=== PATIENT | male | born 1985 | race Caucasian/White ===

== ENCOUNTER 2018-11-26 05:02 | Inpatient (IN) | payer OTHER ==
[2018-11-23 10:29] LABS: BASOPHILS # (AUTO) 0.1 (0.0-0.1); EOSINOPHILS # (AUTO) 0.1 (0.0-0.4); EOSINOPHILS % 1.6 % (0.0-6.0); HEMATOCRIT 48.4 % (38.2-49.6); HEMOGLOBIN 16.2 g/dL (14.0-18.0); LYMPHOCYTES % 31.5 % (18.0-39.1); MEAN CORPUSCULAR HEMOGLOBIN 29.7 pg (28-32); MEAN CORPUSCULAR HGB CONC 33.5 g/dL (31-35); MEAN CORPUSCULAR VOLUME 88.8 fL (81-99); MONOCYTES # (AUTO) 0.4 (0.2-0.8); MONOCYTES % 6.4 % (4.4-11.3); NEUTROPHILS # (AUTO) 3.7 (2.1-6.9); PLATELET COUNT 205 x10e3/uL (140-360); RED BLOOD COUNT 5.45 x10e6/uL (4.3-5.7); RED CELL DISTRIBUTION WIDTH 14.4 % (11.7-14.4)
[~2018-11-26] VITALS: Ht 182.9 cm; Wt 171.0 kg
[~2018-11-26 05:02] MED LIST: BUPROPION HCL75 MG PO; DEPAKOTE125 MG; METOPROLOL
[2018-11-26] MEDS ORDERED: CEFAZOLIN SOD 2 GM/D5W 50ML 50 ML IV ONE (05:15)
[2018-11-26] MEDS ORDERED: BUPROPION HCL100 MG PO (05:25)
[2018-11-26] MEDS ORDERED: DEPAKOTE500 MG PO (05:25)
[2018-11-26] MEDS ORDERED: METOPROLOL TART25 MG PO (05:25)
[2018-11-26] MEDS ORDERED: BUPIVACAINE 0.25% 30ML SDV INJ ONE (06:11)
[2018-11-26] MEDS ORDERED: LIDOCAINE HCL (LTA) 4 ML SOLN ONE (06:44)
[2018-11-26] MEDS ORDERED: ACETAMINOPHEN 1000 MG/100 ML 100 ML IV ONE (06:44)
[2018-11-26] MEDS ORDERED: SCOPOLAMINE 1.5 MG PATCH ONE (06:45)
[2018-11-26] MEDS ORDERED: SUGAMMADEX SODIUM 200 MG/2 ML VIAL IV ONE (08:26)
[2018-11-26] MEDS ORDERED: MORPHINE SULFATE 2 MG/ML SYR 1ML IV PRN (08:45)
[2018-11-26] MEDS ORDERED: FENTANYL CITRATE/PF 100MCG/2 ML INJ ONE ×2 (09:00→18:25)
[2018-11-26] MEDS ORDERED: ONDANSETRON HCL INJ 2MG/ML 2ML 2 MG/ML VIAL ONE ×2 (09:06→13:21)
[2018-11-26] MEDS ORDERED: METOCLOPRAMIDE HCL 10 MG/2ML VIAL ONE (09:14)
[2018-11-26] MEDS ORDERED: PROMETHAZINE HCL (IM) 25 MG/ML VIAL ONE (09:26)
--- NOTE | 2018-11-26 09:34 | Operative Report ---
DATE OF PROCEDURE: 11/26/2018 SURGEON: Anibal Mcduffie MD PREOPERATIVE DIAGNOSES: 1. Morbid obesity, BMI 51. 2. Obstructive sleep apnea. POSTOPERATIVE DIAGNOSES: 1. Morbid obesity, BMI 51. 2. Obstructive sleep apnea. PREOPERATIVE INDICATIONS: Treat disease, prevent complications related to comorbid conditions of obesity. PROCEDURE: Laparoscopic vertical sleeve gastrectomy. ANESTHESIA: General. DISK OPERATOR: Akshat Carrasco, surgical coder (needed due to complexity of case). FLUIDS: 1 liter of crystalloid. ESTIMATED BLOOD LOSS: 20 mL. DRAINS: None. COMPLICATIONS: None. SPECIMENS: Partial stomach. GRAFTS: None. FINDINGS: 1. Normal upper GI anatomy. 2. Negative intraoperative EGD leak test. PROCEDURE IN DETAIL: The patient was brought to the operating room and was intubated under general endotracheal anesthesia. He was positioned supine and both arms abducted and all pressure points were appropriately padded. He was sterilely prepped and draped in the usual fashion. A preprocedure pause was performed identifying the patient, use of perioperative antibiotics, intended procedure, and staff surgeon. Access was gained via a 5 mm left subcostal incision using a Veress needle. Insufflation of the abdomen ensued. Four additional trocars were placed in the standard position and liver retractor was used to expose the stomach. The greater curvature of the stomach was mobilized using [place] LigaSure device from about 4 cm proximal to the pyloric valve to the left dean of the diaphragm. An adult-sized endoscope was placed along the lesser curvature of the stomach. The greater curvature of the stomach was resected using multiple firings of a 60 mm purple load Endo KAILYN Covidien stapling device, which was reinforced with SeamGuard. Once the specimen was removed, it was taken out to the right periumbilical port site. The port site was closed with 0 Vicryl suture using the Rome-Enrique technique in a [id number] fashion. I then conducted the intraoperative EGD leak test of the sleeve. No leaks were identified. We verified hemostasis, desufflated the abdomen, and removed the trocars. The liver retractor was removed. We closed the incision site with 4-0 Monocryl suture in a subcuticular fashion. Dermabond dressings were applied, 0.25% Bupivacaine was used both at the preperitoneal and incisional sites. The patient tolerated the procedure well. Type of wound is type 2, clean and contaminant. All surgical sponges and instrument counts were correct. MD JOSÉ Rooney/GLENL /[id number]
[2018-11-26] MEDS ORDERED: MORPHINE SULFATE INJ 4 MG/ML INJ 1ML ONE (09:42)
[2018-11-26] MEDS ORDERED: SCOPOLAMINE 1.5 MG PATCH TOP SCH (10:00)
--- NOTE | 2018-11-26 10:09 | History and Physical ---
CHIEF COMPLAINT: "I have weight loss surgery." HISTORY: This is a 33-year-old white man, who was admitted to [facility] on Monday, November 26, 2018, for elective bariatric surgery. The patient has a known history of extreme obesity that complicates underlying hypertension and his sleep apnea. Today, the patient underwent successful laparoscopic sleeve gastrectomy. The surgery was performed by Dr. Anibal Mcduffie. At this time, the patient complains of nausea, abdominal pain, as well as being hot. He denies any shortness of breath or chest pain. REVIEW OF SYSTEMS: GENERAL: Weight has been stable. No fever or chills. HEENT: No headaches. No visual changes. CARDIOVASCULAR/RESPIRATORY: No chest pain or cough. GI: Complains of nausea as well as abdominal pain. : Chávez catheter has been removed. NEUROMUSCULAR: Denies any limb weakness and numbness. PAST MEDICAL HISTORY: 1. Hypertensive heart disease. 2. Obstructive sleep apnea. 3. Extreme obesity, BMI 50. 4. Bipolar disorder. ALLERGIES: NO KNOWN DRUG ALLERGIES. FAMILY HISTORY: Noncontributory. SOCIAL HISTORY: This gentleman is . No documentation of tobacco use, but he does drink alcohol socially. HOME MEDICATIONS: 1. Depakote ER 250 mg daily. 2. Wellbutrin XL 150 mg daily. 3. Trazodone 50 mg at bedtime. 4. Metoprolol tartrate 25 mg b.i.d. PHYSICAL EXAMINATION: GENERAL: On exam, he is somnolent, but arousable. He is currently in the post anesthesia care unit. Does not appear to be in respiratory distress. VITAL SIGNS: Blood pressure 130/80, heart rate is 96, respiratory rate is 22, ox saturation is 88%-90% on room air, but he does have sleep apnea. He is afebrile. Height is 6 feet, weight is 325 pounds, BMI is 50. INTEGUMENT: Skin is warm and dry. No pallor, jaundice, or diaphoresis. The patient has multiple tattoos on his chest. HEENT: Anicteric sclerae with moist mucous membranes and no facial droop appreciated. NECK: Supple. No evidence of jugular venous distention. CARDIOVASCULAR: Distant heart sounds. Tachycardic rate with a regular rhythm. LUNGS: Clear to auscultation bilaterally. ABDOMEN: Obese. The laparoscopic incisions are clean, dry, and intact. No bowel sounds are appreciated. EXTREMITIES: No edema or deformities. NEUROLOGIC: Intact. He moves all 4 extremities freely. DIAGNOSES: 1. Status post laparoscopic sleeve gastrectomy. 2. Extreme obesity, BMI 50, complicating underlying sleep apnea and hypertension. 3. Hypertension. 4. Obstructive sleep apnea. PLAN: 1. Intravenous fluids. 2. Intravenous antiemetics. 3. Pain control. 4. We will encourage incentive spirometer use. 5. Blood pressure monitoring control. I would like to thank, Dr. Mcduffie for involving me in this patient's care. MD MARYA Loyd/JHONY /[id number] MTDD
[2018-11-26] MEDS ORDERED: HYDROMORPHONE 2MG/ML 2 MG/ML ML ONE (10:19)
[2018-11-26] MEDS: MORPHINE SULFATE INJ 4 MG/ML INJ 1ML IV PRN ×2 (12:05→18:56)
[2018-11-26] MEDS: SODIUM CHLORIDE 0.9% 1000ML 1,000 ML IV SCH ×2 (12:05→16:43)
[2018-11-26] MEDS: ONDANSETRON HCL INJ 2MG/ML 2ML 2 MG/ML VIAL IV PRN ×2 (12:05→17:53)
[2018-11-26 12:45] VITALS: BP 142/89
[2018-11-26] MEDS ORDERED: SEVOFLURANE INHAL SOLN 250 ML PEN BTL ONE (13:21)
[2018-11-26] MEDS ORDERED: LIDOCAINE HCL 2% LOCAL INJ 5 ML SDV VIAL INJ ONE (13:21)
[2018-11-26] MEDS ORDERED: PROPOFOL IV EMULSION 10 MG/ML 20 ML VIAL ONE (13:21)
[2018-11-26] MEDS ORDERED: DEXAMETHASONE SOD PHOS INJ 4 MG/ML VIAL ONE (13:21)
[2018-11-26] MEDS ORDERED: ROCURONIUM BROMIDE 10 MG/ML 5ML VIAL ONE (13:21)
[2018-11-26] MEDS ORDERED: LIDOCAINE HCL 2% JELLY 5 ML TUBE ONE (13:21)
[2018-11-26 15:01] VITALS: BP 142/89
[2018-11-26 15:02] VITALS: BP 142/89
[2018-11-26 17:05] VITALS: BP 129/78
[2018-11-26] MEDS ORDERED: MIDAZOLAM HCL 2 MG/2 ML VIAL ONE (18:25)
[2018-11-26] MEDS: METOPROLOL TARTRATE 25 MG TAB PO SCH (18:35)
[2018-11-26] MEDS ORDERED: PROMETHAZINE 12.5MG/ NACL 0.9% 12.5 MG/50 ML BAG IV ONE (18:45)
[2018-11-26 20:00] VITALS: BP 129/84
[2018-11-26] MEDS: ENOXAPARIN SOD INJ 40 MG/0.4 ML SYR SC SCH (21:00)
[2018-11-26] MEDS: DEPAKOTE DELAYED-RELEASE TAB 500 MG PO SCH (21:12)
[2018-11-26 21:47] VITALS: BP 129/84
[2018-11-27] VITALS (8 sets, daily range): BP systolic 112–135; BP diastolic 69–86
[2018-11-27] MEDS: SODIUM CHLORIDE 0.9% 1000ML 1,000 ML IV SCH ×3 (00:38→16:38)
[2018-11-27] MEDS: MORPHINE SULFATE INJ 4 MG/ML INJ 1ML IV PRN ×2 (00:41→08:29)
[2018-11-27] MEDS: ONDANSETRON HCL INJ 2MG/ML 2ML 2 MG/ML VIAL IV PRN ×2 (00:42→07:27)
--- NOTE | 2018-11-27 05:17 | NUR ---
ASSISTED PATIENT WITH AMBULATION AT THE HALLWAY, BUT PATIENT COMPLAINT OF HICCUPS AND STARTED TO HAVE ABDOMINAL PAIN.
[2018-11-27 06:40] LABS: BASOPHILS % 0.3 % (0.0-1.0); EOSINOPHILS # (AUTO) 0.1 (0.0-0.4); EOSINOPHILS % 0.7 % (0.0-6.0); HEMOGLOBIN 15.6 g/dL (14.0-18.0); LYMPHOCYTES # (AUTO) 2.1 (1.0-3.2); LYMPHOCYTES % 18.3 % (18.0-39.1); MEAN CORPUSCULAR HEMOGLOBIN 29.9 pg (28-32); MEAN CORPUSCULAR HGB CONC 33.2 g/dL (31-35); MONOCYTES # (AUTO) 0.8 (0.2-0.8); MONOCYTES % 6.5 % (4.4-11.3); NEUTROPHILS # (AUTO) 8.5 (2.1-6.9); NEUTROPHILS % 73.7 % (38.7-80.0); PLATELET COUNT 217 x10e3/uL (140-360); RED BLOOD COUNT 5.22 x10e6/uL (4.3-5.7); RED CELL DISTRIBUTION WIDTH 14.3 % (11.7-14.4)
[2018-11-27] MEDS ORDERED: HYDROCODONE/APAP 7.5MG-325MG 1 EA TAB PO PRN (07:00)
[2018-11-27 07:15] LABS: ALANINE AMINOTRANSFERASE 79 IU/L (0-55); ALBUMIN 3.4 g/dL (3.5-5.0); ALBUMIN/GLOBULIN RATIO 0.9 (0.8-2.0); ALKALINE PHOSPHATASE 80 IU/L (40-150); BLOOD UREA NITROGEN 6 mg/dL (7-26); BUN/CREATININE RATIO 7 (6-25); CALCIUM 8.8 mg/dL (8.4-10.2); CARBON DIOXIDE 23 mmol/L (22-29); CHLORIDE 98 mmol/L (98-107); CREATININE, SERUM 0.83 mg/dL (0.72-1.25); EST GLOMERULAR FILTRATION RATE > 60 ML/MIN (60-); GLUCOSE 127 mg/dL (74-118); MAGNESIUM 2.2 MG/DL (1.3-2.1); SODIUM 134 mmol/L (136-145)
--- NOTE | 2018-11-27 07:29 | NUR ---
MD THOMPSON INTO SEE PT, DISCUSSED POC
--- NOTE | 2018-11-27 07:54 | NUR ---
Progress Note S: Nausea and small amount of vomiting O: AF, VSS; labs reviewed General- no distress Abdomen- soft, incisions clean, dry and intact A/P: POD 1, s/p lap sleeve gastrectomy for morbid obesity -Clears, ambulate, IS, OOB to chair -If nausea improves, ok to dc home later -F/u in 1 week in clinic -Instructions given to patient
[2018-11-27] MEDS ORDERED: BUPROPION HCL 100 MG TAB PO SCH (09:00)
--- NOTE | 2018-11-27 09:20 | NUR ---
PT UNABLE TO TAKE AM MEDICATIONS AT THIS TIME DUE TO NAUSEA
[2018-11-27] MEDS: ENOXAPARIN SOD INJ 40 MG/0.4 ML SYR SC SCH ×2 (10:00→17:30)
--- NOTE | 2018-11-27 11:04 | NUR ---
AMBULATING IN HALLWAY, STEADY GAIT
[2018-11-27] MEDS ORDERED: PROMETHAZINE 25MG/ NS 50ML (IV) IV PRN (11:15)
[2018-11-27] MEDS ORDERED: HYDROCODONE/APAP 5MG-325MG TAB PO PRN (11:30)
[2018-11-27] MEDS: METOPROLOL TARTRATE 25 MG TAB PO SCH ×2 (12:00→20:20)
[2018-11-27] MEDS: BUPROPION HCL 150 MG TABCR PO SCH (12:00)
--- NOTE | 2018-11-27 12:24 | NUR ---
SITTING IN BEDSIDE CHAIR, PT MEDICATED FOR NAUSEA, PT TOOK AM MEDICATIONS AT THIS TIME, CALL LIGHT WITHIN REACH
--- NOTE | 2018-11-27 14:18 | NUR ---
Nutrition Screen Note RD Recommendation for Physician: - ADAT per MD - Diet education provided 11/27 Plan of Care: RD following, monitoring for tolerance and adequacy Nutrition reason for involvement: MD Consult- post-op bariatric diet education Primary Diagnose(s): elective bariatric surgery PMH: HTN, obesity, bipolar disorder, obstructive sleep apnea Ht: 72 in Wt: 377 lb BMI: 51.1 kg/m2 IBW: [address] Assessment: (11/27) 33 YOM admitted for elective gastric bypass surgery. Pt POD#1 and seen today per MD consult for diet education. Pt receptive to diet education at time of visit. Pt educated on progression of clear lquids to full liquids and pureed diet. Pt educated on recommended supplements, MVI and minerals, fluid goals, and dumping syndrome. All pt and family's questions answered at time of visit. Handouts provided. Chart reviewed. Labs and meds reviewed. Will monitor and continue to follow. Current Diet: Clear liquids Malnutrition Evaluation (11/27/18) The patient does not meet criteria for a specified degree of malnutrition at this time. Will re-evaluate at follow-up as appropriate. Diet Education Needs Assessment: Diet education indicated, pt receptive. Learner(s): pt, pt's family Barriers: none Cultural/Language Modifications: none Readiness: ready Method: handouts, discussion Topics: bariatric diet progression Understanding/Compliance: good Nutrition Care Level: Low Signed: Wendy Golden RD, LD, [facility]
--- NOTE | 2018-11-27 14:40 | NUR ---
Visit made by the Spiritual Care Department Pastoral Visitor, Kami Muniz. Pt sleeping soundly and no family present. Pastoral Visitor left a card describing availability of pilot fuel engineer and instructions on how to contact a pilot fuel engineer. CLAUDIA COULTER [employer] Spiritual Care Department O: [phone] Pager: [phone] ([phone] calling from)
--- NOTE | 2018-11-27 15:53 | NUR ---
PT AMBULATED IN HALLWAY, STEADY GAIT, DENIES NAUSEA AT THIS TIME, STANDBY ASSIST TO SIT IN CHAIR, CALL LIGHT WITHIN REACH, PT C/O HICCUPS, TELEPHONED MD THOMPSON TO MAKE AWARE OF PT COMPLAINT, NO NEW ORDERS AT THIS TIME
--- NOTE | 2018-11-27 17:15 | NUR ---
SITTING IN BS CHAIR, VOICES NO NEEDS AT THIS TIME, VISITING WITH FAMILY, CALL LIGHT WITHIN REACH
--- NOTE | 2018-11-27 18:26 | NUR ---
AMBULATING IN HALLWAY, STEADY GAIT , FAMILY AT SIDE
[2018-11-27] MEDS: DEPAKOTE DELAYED-RELEASE TAB 500 MG PO SCH (20:20)
[2018-11-28] VITALS: BP 152/64
[2018-11-28] MEDS: SODIUM CHLORIDE 0.9% 1000ML 1,000 ML IV SCH (00:38)
[2018-11-28 04:00] VITALS: BP 120/69
[2018-11-28 05:55] LABS: BASOPHILS # (AUTO) 0.1 (0.0-0.1); BASOPHILS % 0.7 % (0.0-1.0); EOSINOPHILS # (AUTO) 0.1 (0.0-0.4); EOSINOPHILS % 0.5 % (0.0-6.0); HEMOGLOBIN 14.5 g/dL (14.0-18.0); LYMPHOCYTES % 30.8 % (18.0-39.1); MEAN CORPUSCULAR HEMOGLOBIN 30.1 pg (28-32); MEAN CORPUSCULAR HGB CONC 33.7 g/dL (31-35); MEAN CORPUSCULAR VOLUME 89.4 fL (81-99); MONOCYTES # (AUTO) 0.7 (0.2-0.8); MONOCYTES % 6.7 % (4.4-11.3); NEUTROPHILS # (AUTO) 5.9 (2.1-6.9); NEUTROPHILS % 60.7 % (38.7-80.0); PLATELET COUNT 179 x10e3/uL (140-360); RED BLOOD COUNT 4.81 x10e6/uL (4.3-5.7); RED CELL DISTRIBUTION WIDTH 14.4 % (11.7-14.4)
[2018-11-28 06:07] LABS: ALANINE AMINOTRANSFERASE 48 IU/L (0-55); ALBUMIN 3.2 g/dL (3.5-5.0); ALBUMIN/GLOBULIN RATIO 0.9 (0.8-2.0); ALKALINE PHOSPHATASE 76 IU/L (40-150); ANION GAP 13.7 mmol/L (8-16); BLOOD UREA NITROGEN 5 mg/dL (7-26); BUN/CREATININE RATIO 7 (6-25); CALCIUM 8.7 mg/dL (8.4-10.2); CARBON DIOXIDE 24 mmol/L (22-29); CHLORIDE 102 mmol/L (98-107); CREATININE, SERUM 0.73 mg/dL (0.72-1.25); EST GLOMERULAR FILTRATION RATE > 60 ML/MIN (60-); GLUCOSE 109 mg/dL (74-118); POTASSIUM 3.7 mmol/L (3.5-5.1); SODIUM 136 mmol/L (136-145)
[2018-11-28] MEDS: ONDANSETRON HCL INJ 2MG/ML 2ML 2 MG/ML VIAL IV PRN (06:13)
[2018-11-28 08:05] VITALS: BP 144/84
--- NOTE | 2018-11-28 08:05 | NUR ---
PT RESTING IN RECLINER AA0X3 PT IS IN NO S/S OF DISTRESS DENIES PAIN PT HAS 4 TROCHAR SITE IN THE ABD OPEN TO AIR DRY AND INTACT COMPRESSION STOCKINGS PRESENT , SED AT BEDSIDE NOT CURRENTLY ON IV DC AT THIS TIME PRESSURE DRESSING APPLIED AND TAPED. DC INSTRUCTIONS AND PRESCRIPTIONS GIVEN. PT VERBALIZED UNDERSTANDING PT STATES TALKING TO DIETARY REGARDING DIET TEACHING PT IS READY FOR DC
[2018-11-28] MEDS: BUPROPION HCL 150 MG TABCR PO SCH (08:06)
[2018-11-28] MEDS: ENOXAPARIN SOD INJ 40 MG/0.4 ML SYR SC SCH (08:06)
[2018-11-28] MEDS ORDERED: ZOFRAN4 MG PO (08:09)
[2018-11-28] MEDS ORDERED: TYLENOL WITH C1 EACH PO (08:09)
--- NOTE | 2018-11-28 08:09 | Discharge Summary ---
ADMIT DIAGNOSES: 1. Extreme obesity, BMI 51, complicating underlying hypertension and sleep apnea. 2. Obstructive sleep apnea. 3. Hypertensive heart disease. DISCHARGE DIAGNOSES: 1. Status post laparoscopic vertical sleeve gastrectomy. 2. Extreme obesity, BMI 51, complicating underlying hypertension, obstructive sleep apnea. 3. Hypertensive heart disease. 4. Evidence of obstructive sleep apnea. HOSPITAL COURSE: This is a 33-year-old white man, who was admitted to [facility] with diagnosis of extreme obesity with BMI 51, complicating underlying hypertension, and obstructive sleep apnea. During this hospitalization, he underwent successful laparoscopic vertical sleeve gastrectomy that was performed by his Bariatric Surgeon, Dr. Anibal Mcduffie. The patient's hospitalization was unremarkable. He was tolerating a clear liquid diet prior to discharge. The patient did stay one extra night because he was experiencing significant right-sided abdominal pain as well as persistent nausea, vomiting. On day of discharge, he was not experiencing any nausea, vomiting. CONDITION ON DISCHARGE: Stable. DISCHARGE MEDICATIONS: 1. Depakote ER 250 mg daily. 2. Wellbutrin XL 150 mg daily. 3. Trazodone 50 mg at bedtime. 4. Metoprolol tartrate 25 mg b.i.d. 5. Tylenol No. 3 one pill every 4 hours p.r.n. abdominal pain, #25 prescribed, no refills. 6. Zofran 4 mg by mouth every 6 hours p.r.n. nausea, vomiting, #20 prescribed, no refills. FOLLOWUP INSTRUCTIONS: 1. The patient instructed to follow up with Dr. Anibal Mcduffie within a week and with his primary care physician, Isaiah within two weeks. 2. The patient was instructed to start a full liquid diet tomorrow, on November. MD MARAY Loyd/JHONY /[id number] cc: Anibal Mcduffie MD
[2018-11-28] MEDS: METOPROLOL TARTRATE 25 MG TAB PO SCH (08:28)
--- NOTE | 2018-11-28 08:32 | NUR ---
PT IS NOW OFF UNIT TO HOME AT THIS TIME
[2018-11-28] MEDS ORDERED: ONDANSETRON HCL 4 MG ORAL DISINTEGRATING TAB PO PRN (08:45)
[2018-11-28 09:14] VITALS: BP 144/84
== END 2018-11-28 08:32 | disposition home or self-care (01) | DRG 621 ==
LOC: OR 05:02 → PACU V 08:46 → MED/SURG 11:32
PROVIDERS: ADMIT Internal Medicine; ATTEND Internal Medicine
PROC: 0DB64Z3 Excision of Stomach, Percutaneous Endoscopic Approach, Vertical (ICD-10-PCS; principal; 2018-11-26 07:30)
DX: E66.01 Morbid (severe) obesity due to excess calories (principal); Z68.43 Body mass index [BMI] 50.0-59.9, adult; I10 Essential (primary) hypertension; G47.33 Obstructive sleep apnea (adult) (pediatric); F31.9 Bipolar disorder, unspecified
CPT/HCPCS: 36415; 80053; 82948; 83735; 84100; 85025; 93005; J0690; J1100; J1650; J2001; J2250; J2270; J2405; J2550; J2765; J7030